=== PATIENT | female | born 1980 | race Two or more races ===

== ENCOUNTER 2018-09-01 22:36 | Emergency (ER) | payer OTHER ==
[~2018-09-01] VITALS: Ht 175.3 cm; Wt 90.7 kg
[2018-09-02] MEDS ORDERED: NORFLEX100MG PO (07:15)
[2018-09-02] MEDS ORDERED: KETO10TA2 PO (07:15)
== END 2018-09-02 07:56 | disposition home or self-care (01) ==
LOC: ER 22:36
DX: M62.830 Muscle spasm of back (principal)